=== PATIENT | male | born 1940 | race Two or more races ===

== ENCOUNTER 2019-10-21 12:47 | Emergency (ER) | payer OTHER ==
[~2019-10-21] VITALS: Ht 152.4 cm; Wt 59.9 kg
[~2019-10-21 12:47] MED LIST: ASA325 MG; CARVEDILOL25 MG; COREG CR20 MG; JANUVIA100 MG; MYCOSTATIN100000 UNI PO; NITROSTAT0.4 MG; PENTOXIFYLLINE400 MG; PRINIVIL20 MG
[2019-10-21] MEDS ORDERED: INDUR (13:12)
[2019-10-21] MEDS ORDERED: NEURONTIN300 MG (13:13)
[2019-10-21] MEDS ORDERED: TRENTRAL (13:13)
== END 2019-10-21 17:09 | disposition home or self-care (01) ==
LOC: ER 12:47
DX: K29.60 Other gastritis without bleeding (principal)